=== PATIENT | male | born 1965 | race African-American/Black ===

== ENCOUNTER 2024-06-30 15:39 | Emergency (ER) | payer MEDICARE, SELFPAY ==
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
[2024-06-30 15:53] VITALS: BP 171/95; PULSE 83; RESP 16; TEMP 36.1; O2SAT 97; BMI 33.6
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
[2024-06-30 20:46] LABS: MANUAL DIFF FLAG NO
[2024-06-30 20:47] LABS: Basophils Absolute Auto 0.1 X10*3/uL (0.0-0.2); Basophils Percent Auto 0.7 % (0-2); Eosinophils Absolute Auto 0.4 X10*3/uL (0.0-0.4); Eosinophils Percent Auto 4.8 % (0-4); Hematocrit 40.6 % (42.0-52.0); Hemoglobin 13.4 g/dl (14.0-18.0); Imm Gran Abs Auto 0.06 X10*3/uL (0.00-0.03); Imm Gran Pct Auto 0.8 % (0.0-0.4); Lymphocytes Absolute Auto 0.9 X10*3/uL (1.2-4.9); Lymphocytes Percent Auto 12.9 % (20-40); Mean Corpuscular Hemoglobin 29.3 pg (27.0-33.0); Mean Corpuscular Volume 88.6 fL (80.0-98.0); Mean Platelet Volume 11.5 fL (9.4-12.4); Monocytes Percent Auto 14.1 % (2-11); Neutrophils Absolute Auto 4.9 x10*3/uL (2.0-8.3); Neutrophils Percent Auto 66.7 % (45-73); Platelet Count 150 X10*3/uL (160-400); Red Blood Count 4.58 X10*6/uL (4.60-5.80); Red Cell Distribution Width 15.1 % (11.0-16.0); White Blood Count 7.3 X10*3/uL (4.8-10.8)
[2024-06-30 21:02] LABS: Alanine Aminotransferase 22 U/L (0-40); Albumin Level 3.9 g/dL (3.5-5.0); Alkaline Phosphatase 81 U/L (39-117); Anion Gap 14 (12-20); Aspartate Amino Transferase 22 U/L (5-37); Bilirubin Direct 0.2 mg/dL (0.0-0.5); Bilirubin Total 0.5 mg/dL (0.0-1.0); Blood Urea Nitrogen 14 mg/dL (9-16); C Reactive Protein 0.48 mg/dL (< or = 0.50); Calcium 9.4 mg/dL (8.4-10.2); Carbon Dioxide 23 mmol/L (22-29); Chloride 104 mmol/L (96-108); Creatinine Clr Calc Pharmacy 157.3; Estimated Glomerular Filt Rate > 60; Glucose Random 84 mg/dL (60-115); Potassium 3.7 mmol/L (3.3-5.1); Sodium 137 mmol/L (135-145); Total Protein 7.4 g/dL (6.5-8.0)
[2024-06-30 21:31] VITALS: BP 157/61; PULSE 81; RESP 17; TEMP 36.3; O2SAT 97
[2024-06-30 21:53] VITALS: BP 157/61; PULSE 81; RESP 17; TEMP 36.3; O2SAT 97
== END 2024-06-30 21:54 | disposition home or self-care (01) ==
PROVIDERS: Emergency Provider Emergency Medicine
DX: M25.572 Pain in left ankle and joints of left foot (principal); Z79.899 Other long term (current) drug therapy
CPT/HCPCS: 36415; 73610; 80048; 80076; 85025; 86140; 99283

== ENCOUNTER → 2024-06-30 16:00 | Outpatient (BNV) | payer SELFPAY | PROVIDERS: Visit Provider Radiology Diagnostic Radiology | DX: R22.42 Localized swelling, mass and lump, left lower limb (principal); T84.84XA Pain due to internal orthopedic prosthetic devices, implants and grafts, initial encounter; S82.852D Displaced trimalleolar fracture of left lower leg, subsequent encounter for closed fracture with routine healing | CPT/HCPCS: 73610 ==

== ENCOUNTER 2025-06-25 15:55 | Inpatient (IN) | payer MEDICARE, SELFPAY ==
[2025-06-25] VITALS (10 sets, daily range): BP systolic 141–180; BP diastolic 79–94; PULSE 75–97; RESP 16–22; TEMP 36.4–36.6; O2SAT 97–100; BMI 33.1
--- NOTE | ~2025-06-25 | CT_ITS ---
CLINICAL HISTORY: Syncopal episode, possible seizure --- Additional Notes or Special Instructions: Rule out skull fracture, bleed, stroke, mass effect CT Head Without Contrast: Comparison: None Findings: Cortical sulci are prominent. Remote bilateral large lacunar infarcts are present in the thalamus. Basal ganglia are unremarkable No shift in midline structures No intraparenchymal bleeding or abnormal extra axial blood fluid collections Normal pituitary size Clear paranasal sinuses Unremarkable orbital structures No depressed fractures Impression: Remote lacunar infarcts are present in the bilateral thalamus and inferior baldemar Chronic involutional volume loss and no acute findings. This document has been electronically signed by: Alfred Betts MD on 06/25/2025 19:14:18
--- NOTE | 2025-06-25 16:07 | ECG_ITS ---
Test Reason : seizure Blood Pressure : */* mmHG Vent. Rate : 90 BPM Atrial Rate : 90 BPM P-R Int : 186 ms QRS Dur : 84 ms QT Int : 348 ms P-R-T Axes : 45 -2 8 degrees QTcB Int : 425 ms Normal sinus rhythm Possible Left atrial enlargement Inferior infarct , age undetermined Abnormal ECG No previous ECGs available Referred By: Generic ED Physician Electronically Signed By: ALEJA NICHOLS MD
[2025-06-25 16:19] LABS: MANUAL DIFF FLAG NO
[2025-06-25 16:45] LABS: Alanine Aminotransferase 33 U/L (0-40); Albumin Level 4.2 g/dL (3.5-5.0); Alkaline Phosphatase 116 U/L (39-117); Anion Gap 19 (12-20); Aspartate Amino Transferase 63 U/L (5-37); Blood Urea Nitrogen 18 mg/dL (9-16); Calcium 9.4 mg/dL (8.4-10.2); Carbon Dioxide 21 mmol/L (22-29); Chloride 103 mmol/L (96-108); Creatinine Clr Calc Pharmacy 122.3; Estimated Glomerular Filt Rate > 60; Potassium 5.8 mmol/L (3.3-5.1); Sodium 137 mmol/L (135-145); Total Protein 8.0 g/dL (6.5-8.0)
[2025-06-25 16:48] LABS: Hematocrit 37.8 % (42.0-52.0); Hemoglobin 11.7 g/dl (14.0-18.0); Imm Gran Abs Auto 0.13 X10*3/uL (0.00-0.03); Imm Gran Pct Auto 1.6 % (0.0-0.4); Lymphocytes Absolute Auto 1.0 X10*3/uL (1.2-4.9); Mean Corpuscular HGB Conc 31.0 g/dl (31.0-36.0); Mean Corpuscular Hemoglobin 26.4 pg (27.0-33.0); Mean Corpuscular Volume 85.3 fL (80.0-98.0); NRBC Abs Auto 0.000 X10*3/uL (0.0-0.012); NRBC Pct Auto 0.0 /100WBC (0.0-0.2); Platelet Count 137 X10*3/uL (160-400); Red Blood Count 4.43 X10*6/uL (4.60-5.80); White Blood Count 8.3 X10*3/uL (4.8-10.8)
[2025-06-25 17:06] LABS: Appearance Urine Clear; Glucose Urine UA Negative (Negative); PH 5.5 (5.0-9.0); Specific Gravity - Urine 1.020 (1.005-1.025); UMIC TRIGGER UACC YES
[2025-06-25 17:12] LABS: UACC Culture Trigger YES
[2025-06-25 17:24] LABS: Glucose, Whole Blood 91 mg/dL (60-115)
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
[2025-06-25 18:46] LABS: Troponin-I High Sensitivity < 2.7 ng/L (<3.5-35.0)
[2025-06-25 19:11] LABS: Troponin-I High Sensitivity 3.3 ng/L (<3.5-35.0)
--- NOTE | 2025-06-25 19:15 | PC.NURSE ---
Took over care from EDGAR Loza, pt a&o, no sign of respiratory distress, seizure precaution in place.
[2025-06-25 19:17] LABS: Cannabinoid Screen Urine Not Detected (Not Detect)
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
--- NOTE | 2025-06-25 21:12 | PC.NURSE ---
pt admitted to hospital, pt pack changer to hospital attire, seizure precautions in place, pt a&o, neuro intact, no sign of distress at this time.
--- NOTE | 2025-06-25 21:38 | PHA.MEDREC ---
Pharmacy Consult ? Medication Reconciliation Pharmacy has completed the medication reconciliation. Spoke with patient in ED, patient is not taking any RX or OTC meds.
[2025-06-25 22:04] LABS: Magnesium 1.7 mg/dL (1.6-2.6)
[2025-06-25 22:06] LABS: NT Pro B Type Natriuretic Pept < 15.8 pg/mL (<300)
[2025-06-25 22:11] LABS: Resp Syncy Virus RNA Qual PCR NEGATIVE (Negative); SARS COV2 PCR INHOUSE NEGATIVE (Negative)
--- NOTE | 2025-06-25 22:40 | PC.NURSE ---
pt taken to CT Scan
--- NOTE | 2025-06-25 22:41 | PC.NURSE ---
Assisted with bedside urinal, pt resting in bed awaiting bed assignment.
--- NOTE | 2025-06-25 22:45 | PC.NURSE ---
pt urine output 300
--- NOTE | 2025-06-25 23:48 | PC.NURSE ---
pt sleeping at this time, no sign of distress at this time.
[2025-06-26] VITALS (8 sets, daily range): BP systolic 142–171; BP diastolic 83–91; PULSE 73–83; RESP 17–20; TEMP 36.2–36.9; O2SAT 98–100
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
--- NOTE | 2025-06-26 02:39 | PC.NURSE ---
Notified provider pt having increase PVs, no symptoms while sleeping.
[2025-06-26] MEDS: 0.9 % Sodium Chloride Flush 3 ML SYRINGE IVFLUSH ×3 (03:16→20:59)
--- NOTE | 2025-06-26 03:27 | PC.NURSE ---
pt medicated per sep, urinal emptied. 200cc
[2025-06-26 05:38] LABS: Hemoglobin A1C 66.7473 umol/L
[2025-06-26 05:42] LABS: Hematocrit 35.5 % (42.0-52.0); Hemoglobin 11.1 g/dl (14.0-18.0); Imm Gran Abs Auto 0.08 X10*3/uL (0.00-0.03); Imm Gran Pct Auto 1.0 % (0.0-0.4); Lymphocytes Absolute Auto 1.0 X10*3/uL (1.2-4.9); MANUAL DIFF FLAG SCAN; Mean Corpuscular HGB Conc 31.3 g/dl (31.0-36.0); Mean Corpuscular Hemoglobin 26.6 pg (27.0-33.0); Mean Corpuscular Volume 85.1 fL (80.0-98.0); NRBC Abs Auto 0.000 X10*3/uL (0.0-0.012); NRBC Pct Auto 0.0 /100WBC (0.0-0.2); PLT CLUMP 1; Red Blood Count 4.17 X10*6/uL (4.60-5.80); SCAN SMEAR FLAG 1
[2025-06-26 05:49] LABS: Alanine Aminotransferase 24 U/L (0-40); Albumin Level 3.6 g/dL (3.5-5.0); Alkaline Phosphatase 78 U/L (39-117); Anion Gap 11 (12-20); Aspartate Amino Transferase 42 U/L (5-37); Blood Urea Nitrogen 11 mg/dL (9-16); Calcium 9.2 mg/dL (8.4-10.2); Carbon Dioxide 23 mmol/L (22-29); Chloride 105 mmol/L (96-108); Cholesterol 198 mg/dL (<200); Creatinine Clr Calc Pharmacy 154.2; Estimated Glomerular Filt Rate > 60; HDL Cholesterol 79 mg/dL (>40); Magnesium 1.6 mg/dL (1.6-2.6); Potassium 3.0 mmol/L (3.3-5.1); Sodium 136 mmol/L (135-145); Total Protein 6.5 g/dL (6.5-8.0); Triglycerides 71 mg/dL (<150)
[2025-06-26 06:09] LABS: Platelet Count 129 X10*3/uL (160-400); White Blood Count 7.7 X10*3/uL (4.8-10.8)
--- NOTE | 2025-06-26 06:51 | PC.NURSE ---
report given to EDGAR Bardales.
[2025-06-26] MEDS: Potassium Chloride ER 20 MEQ TAB.ER.PRT PO (06:52)
--- NOTE | 2025-06-26 07:00 | CA_ITS ---
Transthoracic Echocardiogram Patient (Last, First, Middle): Allen Doan, Gender: Male Date of : 1965 Age: 59 Procedure Date: 06/26/2025 Procedure Type: Transthoracic Echocardiogram Location: ER Height: 185. cm Weight: 113.85 kg BSA: 2.37 m2 Heart Rate: 77 bpm BP: 154 / 84 mmHg Occupational Health Coordinator: IWONA Referring MD: Reba Bobby [facility] Bonderizer Operator: Wilver Duque MD Symptoms: syncopal episode with LOC Study Quality: Adequate ECG Rhythm: Sinus Conclusions: - 1. Normal LV ejection fraction 60 65% 2. Mild calcific aortic valve changes noted with normal cardiac valvular Dopplers 3. Normal RV systolic pressure 4. No pericardial effusion Findings Left Ventricle The visually estimated ejection fraction is between 60-65%. Spectral Doppler is indicative of a normal filling pattern. Right Ventricle Normal right ventricular cavity size and systolic function. Atria The left atrium is likely dilated. There is a mobile atrial septum noted. Interatrial shunt cannot be excluded. The right atrium is normal in size. Aortic Valve There is a doming trileaflet aortic valve. There is mild calcification of the aortic valve. There is no aortic valve stenosis. There is no aortic valve regurgitation. Mitral Valve There is mild anterior and posterior mitral leaflet thickening. There is trace mitral valve regurgitation. There is no mitral valve stenosis. Pulmonic Valve The pulmonic valve is likely normal. Tricuspid Valve Normal tricuspid valve structure. There is trace tricuspid valve regurgitation. The right ventricular systolic pressure is normal. The right ventricular systolic pressure is 13 mmHg. Normal right atrial pressure. There is no evidence of pulmonary hypertension. Great Vessels All visible segments of the aorta are normal in size. The pulmonary artery was not well visualized. There is no dilatation of the ascending aorta measuring 3.10 cm. Venous The inferior vena cava is normal in size and collapses greater than 50% with inspiration. Pericardium/Pleural There is no evidence of pericardial effusion. Prior Study Comparison No prior study available for comparison. Recommendations, Care & Conclusions Recommend contrast study to evaluate intracardiac shunting. Measurements 2D Linear Measurements IVSd: 0.99 0.6-0.9/0.6-1.0 cm LVIDd: 5.08 3.9-5.3/4.2-5.9 cm LVIDd Index: 2.14 2.4-3.2/2.2-3.1 cm/m2 LVIDs: 2.60 2.0-3.6 cm LVPWd: 1.14 0.7-1.1 cm LA Diam: 3.50 2.7-3.8/3.0-4.0 cm LAIDs Index: 1.48 1.5-2.3 cm/m2 LV Mass: 253.46 67-162/88-224 g LV Mass Index: 106.94 43-95/49-115 g/m2 LVOT Diam: 2.30 3.0+(-)1.3 cm 2D Systolic Function EF 4C: 60.90 >55% EF 2C: 67.70 >55% EF BiP: 65.20 >55% Mitral Valve MV Pk E: 0.72 MV PK A: 0.77 MV Decel Time: 232.00 E/A: 0.90 E'Lateral: 9.25 E'Medial: 9.14 E/E' Med: 7.90 E/E' Lat: 7.80 PHT: 68.00 MVA PHT: 3.24 Decel Camp: 3.10 Aortic Valve AoV Pk Noel: 1.56 AoV Mn Noel: 1.10 AoV VTI: 0.28 AoV Pk Grad: 10.00 Aov Mn Grad: 6.00 COURTNEY Cont.VTI: 2.97 LVOT LVOT Pk Noel: 1.10 LVOT Mn Noel: 0.73 LVOT VTI: 0.20 LVOT Pk Grad: 5.00 LVOT Mn Grad: 3.00 LVOT Diam: 2.30 LVOT Area: 4.15 Diastolic Function MV Pk E: 0.72 MV Pk A: 0.77 E/A: 0.90 E'Medial: 9.14 E/E' Med: 7.90 E' Laterial: 9.25 E/E' Lat: 7.80 Right Ventricle TAPSE (mm): 25.40 TVS' Noel: 14.80 Tricuspid Valve TR Pk Noel: 1.62 TR Pk Grad: 10.00 RA Press: 3.00 RVSP: 13.00 Great Vessels Aorta Sinus of Valsalva: 3.20 2.0-3.5 cm Ao Asc: 3.10 2.1-3.4 cm Ao Arch: 2.90 Pulmonary Veins Pulm Vein S/D 2.30 Pulmonary Valve PV Pk Noel: 1.07 Peak PV Grad: 5.00 Updated in Other Vendor System with Status of Final Wilver Duque MD electronically signed on 06/26/2025 1:32:46 PM with status of Final
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
--- NOTE | 2025-06-26 08:23 | PC.NURSE ---
Echo at bedside
--- NOTE | 2025-06-26 09:02 | PC.NURSE ---
Physician held potassium pills
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
--- NOTE | 2025-06-26 12:08 | MHC.CM.PN ---
IMM 06/26/25, Pt. does not currently have a PCP, he was given a brochure, he said he will follow up to get a new one. He does not use home health services or DME. He will need assistance with transport home at [place], DCP: home, self care. Cm to follow for DC needs.
--- NOTE | 2025-06-26 15:09 | PC.NURSE ---
Pt refusing alarms, Ambulates with a steady gait. educated on importance of high fall risk interventions due to recent fall prior to admission. Pt encouraged to use call bed for all needs.
[2025-06-27] VITALS (9 sets, daily range): BP systolic 134–172; BP diastolic 67–90; PULSE 70–88; RESP 16–18; TEMP 36.6–37; O2SAT 97–100
[2025-06-27 06:45] LABS: Hematocrit 36.6 % (42.0-52.0); Hemoglobin 11.6 g/dl (14.0-18.0); Mean Corpuscular HGB Conc 31.7 g/dl (31.0-36.0); Mean Corpuscular Hemoglobin 26.9 pg (27.0-33.0); Mean Corpuscular Volume 84.9 fL (80.0-98.0); NRBC Abs Auto 0.000 X10*3/uL (0.0-0.012); NRBC Pct Auto 0.0 /100WBC (0.0-0.2); PLT CLUMP 1; Red Blood Count 4.31 X10*6/uL (4.60-5.80)
[2025-06-27 06:53] LABS: White Blood Count 6.3 X10*3/uL (4.8-10.8)
[2025-06-27 07:03] LABS: Anion Gap 13 (12-20); Blood Urea Nitrogen 8 mg/dL (9-16); Calcium 9.5 mg/dL (8.4-10.2); Carbon Dioxide 22 mmol/L (22-29); Chloride 105 mmol/L (96-108); Creatinine Clr Calc Pharmacy 166.3; Estimated Glomerular Filt Rate > 60; Potassium 3.1 mmol/L (3.3-5.1); Sodium 137 mmol/L (135-145)
[2025-06-27 07:17] LABS: Platelet Count 129 X10*3/uL (160-400)
[2025-06-27] MEDS: Potassium Chloride Packet 20 MEQ PACKET 40 MEQ PO (10:50)
[2025-06-27] MEDS: 0.9 % Sodium Chloride Flush 3 ML SYRINGE IVFLUSH (10:51)
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
--- NOTE | 2025-06-27 11:46 | MHC.CM.PN ---
Addendum entered by Teri Mckay RN 06/27/25 15:14: PT NOW DISCHARGING AMA. Addendum entered by Teri Mckay RN 06/27/25 11:55: DC CANCELLED BY HOSPITALIST. Original Note: PT MEDICALLY CLEARED FOR DC HOME SELF-CARE, CM WILL ASSIST W/TRANSPORT VIA [facility] SHUTTLE VS LYFT
[2025-06-27 12:06] LABS: Potassium 3.4 mmol/L (3.3-5.1)
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
--- NOTE | 2025-06-27 15:01 | PC.NURSE ---
Pt requesting to leave MD Camacho at bedside to review the risks of leaving AMA. Pt verbalized understanding and continued to state he wanted to leave AMA. Pt provided with instructions, meds, and reviewed sign and symptoms of when to return to emergency department. construction project mgr and IV removed.
== END 2025-06-27 16:17 | disposition left against medical advice (07) | DRG 312 ==
LOC: HO.ED 20:04 → HO.EDOVER 20:40 → HO.IMC 06-26 07:33
PROVIDERS: Internal Medicine; Admitting Provider Nurse Practitioner Family; Emergency Provider Emergency Medicine Emergency Medical Services; Visit Provider Internal Medicine
DX: R55 Syncope and collapse (principal); N39.0 Urinary tract infection, site not specified; G83.24 Monoplegia of upper limb affecting left nondominant side; V29.99XS Rider (driver) (passenger) of other motorcycle injured in unspecified traffic accident, sequela; E87.5 Hyperkalemia; E87.6 Hypokalemia; F10.20 Alcohol dependence, uncomplicated; I10 Essential (primary) hypertension; M62.838 Other muscle spasm; Z20.822 Contact with and (suspected) exposure to COVID-19; Z79.899 Other long term (current) drug therapy
CPT/HCPCS: 36415; 70450; 80048; 80053; 80061; 80307; 81001; 81003; 82947; 83036; 83605; 83735; 83880; 84132; 84443; 84484; 85025; 85027; 87040; 87086; 87088; 87186; 87637; 93005; 93306; 95819; 97161; 99285; J0696; J1650; Q9957; S9485

== ENCOUNTER → 2025-06-25 16:07 | Outpatient (BNV) | payer MEDICARE, SELFPAY | PROVIDERS: Admitting Provider Nurse Practitioner Family; Emergency Provider Emergency Medicine Emergency Medical Services; Visit Provider Internal Medicine Cardiovascular Disease | DX: R94.31 Abnormal electrocardiogram [ECG] [EKG] (principal); R56.9 Unspecified convulsions | CPT/HCPCS: 93010 ==

== ENCOUNTER → 2025-06-25 18:07 | Outpatient (BNV) | payer MEDICARE, SELFPAY | PROVIDERS: Emergency Provider Emergency Medicine Emergency Medical Services; Visit Provider Radiology Diagnostic Radiology | DX: G31.89 Other specified degenerative diseases of nervous system (principal); Z86.73 Personal history of transient ischemic attack (TIA), and cerebral infarction without residual deficits | CPT/HCPCS: 70450 ==

== ENCOUNTER 2025-06-25 20:32 | Outpatient (BNV) | payer MEDICARE, SELFPAY | END 2025-06-26 14:00 | PROVIDERS: Admitting Provider Nurse Practitioner Family; Emergency Provider Emergency Medicine Emergency Medical Services; Visit Provider Psychiatry & Neurology Neurology | DX: R56.9 Unspecified convulsions (principal) | CPT/HCPCS: 95819 ==

== ENCOUNTER 2025-06-25 20:32 | Outpatient (BNV) | payer MEDICARE, SELFPAY | END 2025-06-26 07:00 | PROVIDERS: Admitting Provider Nurse Practitioner Family; Emergency Provider Emergency Medicine Emergency Medical Services; Visit Provider Internal Medicine Cardiovascular Disease | DX: I35.8 Other nonrheumatic aortic valve disorders (principal) | CPT/HCPCS: 93306 ==

== ENCOUNTER → 2025-06-25 20:32 | Outpatient (BNV) | payer MEDICARE, SELFPAY | PROVIDERS: Admitting Provider Nurse Practitioner Family; Emergency Provider Emergency Medicine Emergency Medical Services; Visit Provider Nurse Practitioner Psychiatric/Mental Health | DX: F10.10 Alcohol abuse, uncomplicated (principal) | CPT/HCPCS: 99221 ==

== ENCOUNTER → 2025-06-25 20:32 | Outpatient (BNV) | payer MEDICARE, SELFPAY | PROVIDERS: Admitting Provider Nurse Practitioner Family; Emergency Provider Emergency Medicine Emergency Medical Services; Visit Provider Internal Medicine | DX: F10.10 Alcohol abuse, uncomplicated (principal); Z53.29 Procedure and treatment not carried out because of patient's decision for other reasons | CPT/HCPCS: 99233; 99239 ==

== ENCOUNTER → 2025-06-25 20:32 | Outpatient (BNV) | payer MEDICARE, SELFPAY | PROVIDERS: Admitting Provider Nurse Practitioner Family; Emergency Provider Emergency Medicine Emergency Medical Services; Visit Provider Psychiatry & Neurology Neurology | DX: F10.10 Alcohol abuse, uncomplicated (principal); R56.9 Unspecified convulsions | CPT/HCPCS: 99222 ==